=== PATIENT | male | born 1955 | race Caucasian/White ===

== ENCOUNTER → 2023-08-06 | Outpatient (CLI) | payer MEDICARE ==
--- NOTE | 2023-08-06 08:45 | Diagnostic Imaging Report ---
Indication: Possible metal in the orbits. The study is performed prior to MRI. Time of Exam: 8:39 AM Single view of the orbits was obtained. No definite radiopaque orbital foreign body is detected. IMPRESSION: No opaque orbital foreign body identified. Dictated by: Dictated on workstation # [id number]
--- NOTE | 2023-08-06 14:27 | Diagnostic Imaging Report ---
PROCEDURE: MRI lumbar spine. TECHNIQUE: Multiplanar, multisequence MRI of the lumbar spine was performed without contrast. INDICATION: Low back pain. Degenerative spinal disease at outside lumbar radiographs. COMPARISON: I have no priors for comparison or correlative imaging available. FINDINGS: There is trace grade 1 retrolisthesis presumed degenerative L2 on L3 of about 2 to 3 mm as well as minute 1 to 2 mm retrolisthesis of L3 on L4. No defect at the pedicles or pars and the lumbar statures themselves are normal. There are fatty Modic type II degenerative endplate Modic changes at the L2-L3, L3-L4 and L4-L5, opposing endplates at L3-L4 and L4-L5, there is a slight edematous type I component. T12-L1: Osteophyte disc material is anterior greater than posterior at this level. There is no significant canal, foraminal or recess stenosis. L1-L2: Disc bulge and endplate osteophytes and facet arthrosis are present. There is no substantial canal stenosis. There is a mild degree of left foraminal narrowing. L2-L3: Disc stature loss, endplate osteophytes and facet arthrosis result in mild canal stenosis with mild to moderate left and mild right neural foraminal narrowing. L3-L4: There is thickened ligamenta flava, facet arthrosis, disc bulge and endplate osteophytes with some prominence of the dorsal epidural fat resulting in moderate canal stenosis. There is moderate right and moderate left neural foraminal stenoses and mild narrowing of the bilateral recesses. L4-L5: Thickened ligamenta flava, facet arthrosis, disc bulge and endplate osteophytes result in mild canal stenosis. There is moderate right and [id number] left neural foraminal narrowing. L5-S1: Midline annular disc tearing and midline mild disc protrusion indents the ventral thecal sac with mild canal stenosis. There is mild to moderate right and mild left neural foraminal stenoses. IMPRESSION: 1. Earl-lumbar degenerative changes involving discs, endplates and facets with multilevel predominantly mild or mild to moderate canal, foraminal and recess stenoses detailed above. 2. Slight grade 1 degenerative listheses and multilevel degenerative Modic endplate changes but no acute-appearing bony abnormality. Dictated by: Dictated on workstation # [id number]
== END ==
LOC: RAD 07:43
PROVIDERS: ATTEND Chiropractor
DX: M51.26 Other intervertebral disc displacement, lumbar region (principal); M47.816 Spondylosis without myelopathy or radiculopathy, lumbar region; M48.061 Spinal stenosis, lumbar region without neurogenic claudication; M99.03 Segmental and somatic dysfunction of lumbar region
CPT/HCPCS: 72148